=== PATIENT | female | born 1960 | race Caucasian/White ===

== ENCOUNTER 2018-10-12 14:19 | Day surgery (SDC) | payer BC ==
[~2018-10-12] VITALS: Ht 162.6 cm; Wt 54.5 kg
[~2018-10-12 14:19] MED LIST: BIOTIN5000 MCG PO; CHOL10002 PO; Estrogel93 GM VAG; FISH OIL 1,0001 EAC1 PO; LEVSOD100 PO; LEVSOD125 PO; MULTI VITAMIN1 EACH PO; TUMERSAID TABL1 EACH PO
[2018-10-12] MEDS ORDERED: CALCA400CH (14:37)
--- NOTE | 2018-10-12 16:20 | NUR ---
10/12/18 1620 Kassi Rider PT INTO RECLINER. VSS IN SDU. RIGHT FOOT ELEVATED WITH ICE UNDER RIGHT KNEE. AT CHAIRSIDE. PT DENIES PAIN AND NAUSEA.
== END 2018-10-12 17:22 | disposition home or self-care (01) ==
LOC: ORSCSDS 14:19
PROVIDERS: Podiatrist Foot & Ankle Surgery
PROC: 0QSQ04Z Reposition Right Toe Phalanx with Internal Fixation Device, Open Approach (ICD-10-PCS; principal; 2018-10-12 15:30)
PROC: 0QBN0ZZ Excision of Right Metatarsal, Open Approach (ICD-10-PCS; principal; 2018-10-12 15:30)
DX: M20.11 Hallux valgus (acquired), right foot (principal); S92.811A Other fracture of right foot, initial encounter for closed fracture; E03.9 Hypothyroidism, unspecified
CPT/HCPCS: C1713; C1769; J0690; J2250; J3010; J7120

== ENCOUNTER 2022-04-18 09:44 | Day surgery (SDC) | payer BC ==
[~2022-04-18] VITALS: Ht 162.6 cm; Wt 54.9 kg
[~2022-04-18 09:44] MED LIST changes: +CALCA400CH
== END 2022-04-18 11:34 | disposition home or self-care (01) ==
LOC: ORSCSDS 09:44
PROVIDERS: Internal Medicine Gastroenterology
PROC: 0DBN8ZX Excision of Sigmoid Colon, Via Natural or Artificial Opening Endoscopic, Diagnostic (ICD-10-PCS; principal; 2022-04-18 10:45)
DX: Z12.11 Encounter for screening for malignant neoplasm of colon (principal); D12.5 Benign neoplasm of sigmoid colon; K57.30 Diverticulosis of large intestine without perforation or abscess without bleeding; K64.8 Other hemorrhoids; Z86.010 Personal history of colon polyps; Z83.71 Family history of colonic polyps; Z79.899 Other long term (current) drug therapy
CPT/HCPCS: 88305; J2704; J7120

== ENCOUNTER 2025-04-18 06:21 | Day surgery (SDC) | payer MEDICARE, OTHER ==
[2025-04-18] VITALS (18 sets, daily range): BP systolic 102–146; BP diastolic 68–96
[~2025-04-18] VITALS: Ht 162.6 cm; Wt 57.3 kg
[~2025-04-18 06:21] MED LIST changes: +ALEN70 PO; +CeFAZolin Sodium 2,000 MG in NS 100 ML IV SCH; -LEVSOD100 PO; +LEVSOD88 PO
[2025-04-18] MEDS ORDERED: Rocuronium Bromide 10 MG/ML 5ML Injection IV ONE (06:29)
[2025-04-18] MEDS ORDERED: Ketorolac Tromethamine 30mg Vial ONE (06:29)
[2025-04-18] MEDS ORDERED: Ondansetron HCl 2 MG / ML 2ML Vial ONE (06:29)
[2025-04-18] MEDS ORDERED: FentaNYL Citrate 50 MCG/ML 5 ML Injection ONE (06:29)
[2025-04-18] MEDS ORDERED: Dexamethasone Sod Phos 10 MG/ML 1ML VIAL ONE (06:29)
--- NOTE | 2025-04-18 07:00 | NUR ---
AMBULATORY INTO [facility]. PT REPORTS 5/10 NECK AND LOW BACK PAIN 5/10 WHICH IS HER "NORMAL" TOLERABLE LEVEL. HISTORY AND ALLERGIES REVIEWED. LUNGS CLEAR. NPO STATUS CONFIRMED. CHLORHEXIDINE SHOWER AND WIPE X 2. BELONGINGS GIVEN TO PT SPOUSE APRIL.
[2025-04-18] MEDS ORDERED: Bupivacaine 0.5% HCl 5 MG/ML 30MLVIAL ONE (07:23)
[2025-04-18] MEDS ORDERED: HYDROmorphone HCl/Pf 1MG SYR IV PRN ×3 (09:10→10:20)
[2025-04-18] MEDS ORDERED: Labetalol HCL 5 MG/ML 4ML Injection (Single Dose) IV PRN (09:10)
[2025-04-18] MEDS ORDERED: Ondansetron HCl 2 MG / ML 2ML Vial IV PRN ×2 (09:10→10:25)
[2025-04-18] MEDS ORDERED: FentaNYL Citrate 50 MCG/ML 2 ML Injection IV PRN ×2 (09:10)
[2025-04-18] MEDS ORDERED: Metoclopramide HCl 5MG / ML 2ML Vial IV PRN ×2 (09:10→10:25)
[2025-04-18] MEDS ORDERED: ePHEDrine Sulfate 50 MG/ML 1ML Injection IV PRN (09:15)
[2025-04-18] MEDS ORDERED: Albuterol 2.5 MG/3 ML VIAL INH PRN (09:15)
[2025-04-18] MEDS ORDERED: Naloxone HCl 0.4MG / ML 1ML Vial IV PRN (10:25)
--- NOTE | 2025-04-18 11:11 | NUR ---
ARRIVAL TO UNIT PT ARRIVED TO UNIT FROM PACU VIA GOURNEY. PT SLID TO BED. VSS. DENIES N/V. PT REPORTS BEING COLD. WARM BLANKETS & K-PAD PROVIDED. AT BEDSIDE. ORIENTED TO UNIT, CALL LIGHT IN REACH, NO NEEDS STATED.
[2025-04-18] MEDS ORDERED: Ketorolac Tromethamine 30mg Vial IV SCH (12:00)
--- NOTE | 2025-04-18 18:20 | NUR ---
SHIFT SUMMARY POD 0 LAP HYSTR. NO ACUTE CHANGES THIS SHIFT. VSS. TOLERATING ORALS, DENIES N/V. LAP SITES x4 c DERMABOND C/D/I. PT REPORTS R SHOULDER/ABDOMINAL/RIB PAIN. MEDICATED PER EMAR. VOIDING. MIN SANG DRAINAGE ON MARYLOU PAD. SBA R/T LINES. CALL LIGHT IN REACH, AT BEDSIDE, WILL REPORT TO PAOLA JONES.
[2025-04-19 00:05] VITALS: BP 124/69
[2025-04-19 04:55] VITALS: BP 118/71
[2025-04-19 05:08] LABS: BASOPHILS ABSOLUTE AUTO 0.02 K/mm3 (0.00-0.23); BASOPHILS PERCENT AUTO 0 % (0-2); EOSINOPHILS ABSOLUTE AUTO 0.01 K/mm3 (0.00-0.68); EOSINOPHILS PERCENT AUTO 0 % (0-6); Hematocrit 36.1 % (33.0-51.0); Hemoglobin 12.5 g/dL (11.5-16.0); IMMATURE GRAN ABSOLUTE AUTO 0.02 K/mm3 (0.00-0.10); IMMATURE GRAN PERCENT AUTO 0 % (0-1); LYMPHOCYTES ABSOLUTE AUTO 1.90 K/mm3 (0.84-5.20); LYMPHOCYTES PERCENT AUTO 18 % (21-46); MONOCYTES ABSOLUTE AUTO 0.73 K/mm3 (0.16-1.47); MONOCYTES PERCENT AUTO 7 % (4-13); Mean Corpuscular HGB Conc 34.6 g/dL (31.5-36.5); Mean Corpuscular Volume 94 fL (80-100); NEUTROPHILS ABSOLUTE AUTO 7.97 K/mm3 (1.96-9.15); NEUTROPHILS PERCENT AUTO 75 % (41-73); NRBC ABSOLUTE 0.00 K/mm3 (0.00-0.02); NRBC Auto 0.0 /100 WBC (0.0-0.2); Platelet Count 194 K/mm3 (150-400); RDW Coefficient Variation 13.0 % (11.7-14.2); RDW Standard Deviation 44.6 fL (35.1-46.3)
--- NOTE | 2025-04-19 06:26 | NUR ---
SHIFT SUMMARY NOC. PT POD 1 FOR TOTAL LAP HYSTER. PT LAP SITES X4 ARE C/D/I ASIDE FROM SOME BRUISING NOTED AROUND SITES. PT NAUSEOUS AT START OF SHIFT, NO VOMITTING, MEDICATED PER EMAR WITH REPORTED RELIEF. PT PAINFUL AND MEDICATED PER EMAR. PT AMBULATED CLARK WITH SBA TO EASE GAS PAINS. PT VOIDING, EDUCATION PROVIDED ON VOIDING MORE FREQUENTLY TO PREVENT PRESSURE IN ABD. PT TOLERATING PO INTAKE THIS AM AND IS VOIDING URINE. PT MAKES NEEDS KNOWN, CALL LIGHT IN REACH.
[2025-04-19 07:47] VITALS: BP 118/72
[2025-04-19] MEDS ORDERED: Polyethylene Glycol 3350 17 gm PO SCH (09:00)
[2025-04-19] MEDS ORDERED: Enoxaparin 40 MG/0.4 ML SYR SC SCH (09:00)
--- NOTE | 2025-04-19 10:20 | NUR ---
DISCHARGE SUMMARY POD 1 LAP HYSTR. VSS. TOLERATING ORALS, DENEIS N/V. LAP SITES x4 c DERMABOND C/D/I - MILD BRUISING. PT REPORTS ABD PAIN, TOLERABLE c ORAL MEDICATIONS. VOIDING. SCANT DRAINAGE ON MARYLOU PADS. IND AMB. DISCHARGE INSTRUCTIONS GIVEN, AT BEDSIDE, PT VERBALIZES UNDERSTANDING. ALL PERSONAL BELONGINGS c PT, INCLUDING ABD BINDER. D/C'd VIA WHEELCHAIR TO POV, DRIVEN BY SPOUSE.
== END 2025-04-19 10:23 | disposition home or self-care (01) ==
LOC: ORSCMMR 06:21 → ORD 07:30 → SURS 10:49 → ORSCMMR 04-19 10:23 → ORD 07-11 07:30
PROVIDERS: Obstetrics & Gynecology
PROC: 0UT2FZZ Resection of Bilateral Ovaries, Via Natural or Artificial Opening With Percutaneous Endoscopic Assistance (ICD-10-PCS; principal; 2025-04-18 07:30)
PROC: 0UT7FZZ Resection of Bilateral Fallopian Tubes, Via Natural or Artificial Opening With Percutaneous Endoscopic Assistance (ICD-10-PCS; principal; 2025-04-18 07:30)
PROC: 0UT9FZZ Resection of Uterus, Via Natural or Artificial Opening With Percutaneous Endoscopic Assistance (ICD-10-PCS; principal; 2025-04-18 07:30)
DX: R10.2 Pelvic and perineal pain (principal); D25.9 Leiomyoma of uterus, unspecified; N72 Inflammatory disease of cervix uteri; N83.292 Other ovarian cyst, left side; N83.291 Other ovarian cyst, right side; D28.2 Benign neoplasm of uterine tubes and ligaments; N94.89 Other specified conditions associated with female genital organs and menstrual cycle; E03.9 Hypothyroidism, unspecified; Z79.899 Other long term (current) drug therapy
CPT/HCPCS: 36415; 82947; 85025; 86850; 86900; 86901; 88307; A9270; J0690; J1100; J1650; J1885; J2405; J2704; J3010; J7120